=== PATIENT | female | born 1975 | race Caucasian/White ===

== ENCOUNTER 2018-05-01 00:16 | Observation (INO) | payer MEDICAID ==
[2018-05-01] VITALS (338 sets, daily range): BP systolic 93–109; BP diastolic 54–71; PULSE 51–102; TEMP 97.2–100.2; O2SAT 90–100
[~2018-05-01] VITALS: Ht 157.5 cm; Wt 102.2 kg
[2018-05-01] MEDS ORDERED: BYSTOLIC20 MG PO ×2 (00:42→00:44)
[2018-05-01] MEDS ORDERED: NORVASC 10MG10 MG PO (00:45)
[2018-05-01] MEDS ORDERED: ALDACTONE 100M100 MG PO (00:45)
[2018-05-01] MEDS ORDERED: LAMICTAL200 MG PO (00:47)
[2018-05-01] MEDS ORDERED: ZYRTEC 10MG10 MG PO (00:48)
[2018-05-01] MEDS ORDERED: PROTONIX 40MG T40 MG PO (00:48)
[2018-05-01] MEDS ORDERED: PROPECIA1 MG PO (00:49)
[2018-05-01] MEDS ORDERED: VITAMIN D 50,1.25 MG PO (02:19)
[2018-05-01] MEDS ORDERED: FERRO SEQUELS PO (03:59)
[2018-05-01 05:37] LABS: BASO % 0.3 % (0.0-2.0); EOS # 0.1 (0.0-0.7); EOS % 0.5 % (0-4.0); GRAN # 10.9 (1.4-6.5); GRAN % 73.1 % (42.2-75.2); HEMATOCRIT 37.4 % (37.0-47.0); HEMOGLOBIN 12.8 g/dl (12.5-16.0); LYMPH % 19.9 % (20.0-51.0); MEAN CELL VOLUME 95 fl (80.0-100.0); MEAN CORPUSCULAR HEMOGLOBIN 33 pg (27.0-31.0); MEAN CORPUSCULAR HGB CONC 34 g/dl (33.0-37.0); MEAN PLATELET VOLUME 10.4 fl (7.4-10.4); MONO # 0.9 (0.1-0.6); MONO % 5.9 % (1.7-9.3); PLATELET COUNT 224 K/mm3 (130-400); RED BLOOD COUNT 3.93 M/mm3 (4.10-5.30); REDCELL DISTRIBUTION WIDTH-CV 13.2 % (11.5-14.5)
[2018-05-01 05:49] LABS: ALBUMIN 3.5 gm/dL (3.5-5.0); CALCIUM 8.7 mg/dL (8.4-10.2); CREATININE, serum 0.91 mg/dL (0.52-1.25); PHOSPHOROUS 3.8 mg/dL (2.5-4.5); POTASSIUM 3.8 mmol/L (3.4-5.0)
[2018-05-02] VITALS (7 sets, daily range): BP systolic 113–135; BP diastolic 57–83; PULSE 57–79; TEMP 97.8–99.1
[2018-05-02 09:34] LABS: BASO % 0.4 % (0.0-2.0); EOS # 0.3 (0.0-0.7); EOS % 4.1 % (0-4.0); GRAN # 4.3 (1.4-6.5); GRAN % 60.5 % (42.2-75.2); HEMOGLOBIN 12.3 g/dl (12.5-16.0); LYMPH # 1.9 (1.2-3.4); LYMPH % 26.8 % (20.0-51.0); MEAN CELL VOLUME 94 fl (80.0-100.0); MEAN CORPUSCULAR HEMOGLOBIN 33 pg (27.0-31.0); MEAN CORPUSCULAR HGB CONC 35 g/dl (33.0-37.0); MEAN PLATELET VOLUME 10.7 fl (7.4-10.4); MONO # 0.6 (0.1-0.6); MONO % 7.8 % (1.7-9.3); PLATELET COUNT 219 K/mm3 (130-400); RED BLOOD COUNT 3.79 M/mm3 (4.10-5.30); REDCELL DISTRIBUTION WIDTH-CV 13.1 % (11.5-14.5)
[2018-05-02 09:35] LABS: HEMATOCRIT 35.7 % (37.0-47.0)
[2018-05-02 09:46] LABS: ALBUMIN 3.2 gm/dL (3.5-5.0); CALCIUM 8.5 mg/dL (8.4-10.2); CREATININE, serum 0.75 mg/dL (0.52-1.25); PHOSPHOROUS 3.3 mg/dL (2.5-4.5); POTASSIUM 3.6 mmol/L (3.4-5.0)
[2018-05-03 03:44] VITALS: BP 104/68; PULSE 56; TEMP 99.5
[2018-05-03 06:36] LABS: BASO # 0.1 (0.0-0.2); BASO % 0.8 % (0.0-2.0); EOS # 0.5 (0.0-0.7); EOS % 5.8 % (0-4.0); GRAN # 3.8 (1.4-6.5); GRAN % 48.7 % (42.2-75.2); HEMOGLOBIN 12.4 g/dl (12.5-16.0); LYMPH # 2.5 (1.2-3.4); LYMPH % 32.5 % (20.0-51.0); MEAN CELL VOLUME 96 fl (80.0-100.0); MEAN CORPUSCULAR HEMOGLOBIN 33 pg (27.0-31.0); MEAN CORPUSCULAR HGB CONC 34 g/dl (33.0-37.0); MEAN PLATELET VOLUME 10.8 fl (7.4-10.4); MONO # 0.9 (0.1-0.6); MONO % 11.8 % (1.7-9.3); PLATELET COUNT 225 K/mm3 (130-400); RED BLOOD COUNT 3.78 M/mm3 (4.10-5.30); REDCELL DISTRIBUTION WIDTH-CV 13.2 % (11.5-14.5)
[2018-05-03 06:40] LABS: HEMATOCRIT 36.4 % (37.0-47.0)
[2018-05-03 06:52] LABS: ALBUMIN 3.1 gm/dL (3.5-5.0); CALCIUM 8.4 mg/dL (8.4-10.2); CREATININE, serum 0.88 mg/dL (0.52-1.25); PHOSPHOROUS 4.4 mg/dL (2.5-4.5); POTASSIUM 3.6 mmol/L (3.4-5.0)
[2018-05-03 07:20] VITALS: BP 124/78; PULSE 55; TEMP 98
[2018-05-03] MEDS ORDERED: CIPRO 500MG TA500 MG PO (09:54)
[2018-05-03] MEDS ORDERED: FLAGYL500 MG PO (09:54)
[2018-05-03 11:09] VITALS: BP 115/65; PULSE 64; TEMP 97.9
== END 2018-05-03 16:15 | disposition home or self-care (01) ==
LOC: ICU 00:16 → MEDICAL 00:16
PROVIDERS: Surgery
DX: R10.31 Right lower quadrant pain (principal); I10 Essential (primary) hypertension; E78.5 Hyperlipidemia, unspecified; K21.9 Gastro-esophageal reflux disease without esophagitis; Z79.899 Other long term (current) drug therapy
CPT/HCPCS: G0378; G0379; J0744; J2405; J7120

== ENCOUNTER → 2018-06-10 | Outpatient (CLI) | payer OTHER, MEDICAID ==
[~2018-06-10] MED LIST: ALDACTONE 100M100 MG PO; BYSTOLIC20 MG PO; CIPRO 500MG TA500 MG PO; FERRO SEQUELS PO; FLAGYL500 MG PO; LAMICTAL200 MG PO; NORVASC 10MG10 MG PO; PROPECIA1 MG PO; PROTONIX 40MG T40 MG PO; VITAMIN D 50,1.25 MG PO; ZYRTEC 10MG10 MG PO
== END ==
LOC: COL.RAD 08:15
DX: M50.33 Other cervical disc degeneration, cervicothoracic region (principal); M50.221 Other cervical disc displacement at C4-C5 level; M51.24 Other intervertebral disc displacement, thoracic region; G56.92 Unspecified mononeuropathy of left upper limb; Z98.890 Other specified postprocedural states; V89.2XXS Person injured in unspecified motor-vehicle accident, traffic, sequela

== ENCOUNTER → 2018-07-17 | Outpatient (CLI) | payer OTHER, MEDICAID | LOC: MHCPAIN 08:36 | DX: G89.29 Other chronic pain (principal); M54.12 Radiculopathy, cervical region; M47.812 Spondylosis without myelopathy or radiculopathy, cervical region; R51 Headache | CPT/HCPCS: G0463 ==

== ENCOUNTER → 2020-04-19 | Outpatient (CLI) | payer MEDICAID ==
[~2020-04-19] VITALS: Ht 157.5 cm; Wt 99.3 kg
[2020-04-19] VITALS (9 sets, daily range): BP systolic 108–120; BP diastolic 70–86; PULSE 57–76
[~2020-04-19] MED LIST changes: +AVODART 0.5MG0.5 MG PO
--- NOTE | 2020-04-19 12:45 | NUR ---
PT REQUESTS JUICE AND CRACKERS THESE WERE GIVEN.
== END ==
LOC: COL.RAD 04-12 13:00
DX: S12.9XXD Fracture of neck, unspecified, subsequent encounter (principal); M47.22 Other spondylosis with radiculopathy, cervical region; M48.02 Spinal stenosis, cervical region; M50.11 Cervical disc disorder with radiculopathy, high cervical region; Z98.1 Arthrodesis status
CPT/HCPCS: Q9967

== ENCOUNTER 2020-04-22 10:14 | Emergency (ER) | payer MEDICAID ==
[~2020-04-22] VITALS: Ht 152.4 cm; Wt 93.6 kg
[2020-04-22 10:20] VITALS: TEMP 97.9
[2020-04-22 13:20] VITALS: BP 105/74; PULSE 64
== END 2020-04-22 13:29 | disposition home or self-care (01) ==
LOC: COL.ER 10:14
DX: G97.1 Other reaction to spinal and lumbar puncture (principal)
CPT/HCPCS: J7030

== ENCOUNTER 2021-04-17 07:22 | Emergency (ER) | payer MEDICAID ==
[~2021-04-17] VITALS: Ht 152.4 cm; Wt 93.6 kg
[2021-04-17 07:44] VITALS: BP 118/87; TEMP 99.8
[2021-04-17] MEDS ORDERED: MINOXIDIL 2.5 PO (07:56)
[2021-04-17] MEDS ORDERED: PEN-VEE K500 MG PO (08:39)
[2021-04-17 08:55] VITALS: PULSE 94
== END 2021-04-17 08:59 | disposition home or self-care (01) ==
LOC: COL.ER 07:22
DX: J02.9 Acute pharyngitis, unspecified (principal); F17.200 Nicotine dependence, unspecified, uncomplicated; Z86.16 Personal history of COVID-19
CPT/HCPCS: J0696; J1100

== ENCOUNTER → 2021-06-21 | Outpatient (CLI) | payer MEDICAID ==
[~2021-06-21] MED LIST changes: +BYSTOLIC10 MG PO; +MINOXIDIL 2.5 PO; +PEN-VEE K500 MG PO; +TYLENOL 325MG325 MG PO; +ULTRAM 50MG TAB50 MG PO
== END ==
LOC: COL.RAD 06-07 08:00
DX: K44.9 Diaphragmatic hernia without obstruction or gangrene (principal)

== ENCOUNTER 2021-07-13 05:44 | Day surgery (SDC) | payer MEDICAID ==
[2021-07-13] VITALS (11 sets, daily range): BP systolic 98–134; BP diastolic 60–80; PULSE 58–82; TEMP 97.3–98.8
[~2021-07-13] VITALS: Ht 152.4 cm; Wt 95.7 kg
[~2021-07-13 05:44] MED LIST changes: -BYSTOLIC10 MG PO; -TYLENOL 325MG325 MG PO; -ULTRAM 50MG TAB50 MG PO
[2021-07-13] MEDS ORDERED: BYSTOLIC10 MG PO ×2 (06:42→06:43)
--- NOTE | 2021-07-13 07:19 | NUR ---
Patient taken to surgery per cart by Cameron SEWELL and patient belongings taken to PACU.
--- NOTE | 2021-07-13 10:00 | NUR ---
Pt arrived on unit from PACU via bed. Report received. Oriented to room, bed and call light within reach. Plan of care reviewed with pt.
[2021-07-14 05:20] VITALS: BP 109/61; PULSE 53; TEMP 97.6
[2021-07-14 08:00] VITALS: BP 106/69; PULSE 54; TEMP 98
[2021-07-14 11:45] VITALS: BP 120/69; PULSE 55; TEMP 97.5
[2021-07-14] MEDS ORDERED: ULTRAM 50MG TAB50 MG PO (12:06)
[2021-07-14] MEDS ORDERED: TYLENOL 325MG325 MG PO (12:06)
[2021-07-14 16:30] VITALS: BP 120/75; PULSE 56; TEMP 98
--- NOTE | 2021-07-14 16:40 | NUR ---
Discharge instructions reviewed with patient who verbalizes understanding.
--- NOTE | 2021-07-14 19:00 | NUR ---
1900 DISMISSED TO HOME PER W/C.
== END 2021-07-14 19:00 | disposition home or self-care (01) ==
LOC: SDCO 05:44 → OB 10:00 → SDCO 10:00 → OB 15:00 → SDCO 07-14 19:00
DX: K21.00 Gastro-esophageal reflux disease with esophagitis, without bleeding (principal); K44.9 Diaphragmatic hernia without obstruction or gangrene; I10 Essential (primary) hypertension; E78.5 Hyperlipidemia, unspecified; F32.9 Major depressive disorder, single episode, unspecified; Z90.710 Acquired absence of both cervix and uterus; Z79.82 Long term (current) use of aspirin; Z79.899 Other long term (current) drug therapy; Z80.3 Family history of malignant neoplasm of breast; Z80.0 Family history of malignant neoplasm of digestive organs
CPT/HCPCS: OP; J1885; J3010; J7120

== ENCOUNTER 2021-08-31 23:52 | Emergency (ER) | payer MEDICAID ==
[~2021-08-31] VITALS: Ht 152.4 cm; Wt 93.2 kg
[~2021-08-31 23:52] MED LIST changes: +BYSTOLIC10 MG PO; +TYLENOL 325MG325 MG PO; +ULTRAM 50MG TAB50 MG PO
[2021-09-01 00:38] VITALS: TEMP 98.8
[2021-09-01 01:39] LABS: BASO # 0.1 K/mm3 (0.0-0.2); BASO % 0.8 % (0.0-2.0); EOS # 0.1 K/mm3 (0.0-0.7); EOS % 0.6 % (0-4.0); GRAN # 6.3 K/mm3 (1.4-6.5); GRAN % 68.5 % (42.2-75.2); HEMATOCRIT 40.3 % (37.0-47.0); HEMOGLOBIN 13.8 g/dl (12.5-16.0); LYMPH % 21.8 % (20.0-51.0); MEAN CELL VOLUME 91 fl (80.0-100.0); MEAN CORPUSCULAR HEMOGLOBIN 31 pg (27.0-31.0); MEAN CORPUSCULAR HGB CONC 34 g/dl (33.0-37.0); MONO # 0.7 K/mm3 (0.1-0.6); MONO % 7.8 % (1.7-9.3); PLATELET COUNT 292 K/mm3 (130-400); RED BLOOD COUNT 4.41 M/mm3 (4.10-5.30); REDCELL DISTRIBUTION WIDTH-CV 14.6 % (11.5-14.5)
[2021-09-01 02:17] LABS: ALANINE AMINOTRANSFERASE 34 U/L (0-55); ALBUMIN 3.8 gm/dL (3.5-5.0); ALKALINE PHOSPHATASE 70 U/L (40-150); ANION GAP 8 mmol/L (7-16); AST,SGOT 32 U/L (5-34); BLOOD UREA NITROGEN 11 mg/dL (7-19); CALCIUM 9.4 mg/dL (8.4-10.2); CARBON DIOXIDE 26 mmol/L (22-29); CHLORIDE 106 mmol/L (98-107); CREATININE, serum 0.81 mg/dL (0.57-1.11); GLUCOSE 106 mg/dL (70-99); POTASSIUM 3.3 mmol/L (3.5-4.5); SODIUM 140 mmol/L (136-145); TOTAL PROTEIN 7.2 gm/dL (6.2-8.1)
[2021-09-01 02:27] LABS: TROPONIN-I < 0.010 ng/mL (0.00-0.033)
[2021-09-01 03:04] VITALS: BP 121/75; PULSE 80
== END 2021-09-01 03:10 | disposition home or self-care (01) ==
LOC: COL.ER 23:52
PROVIDERS: Student in an Organized Health Care Education/Training Program
DX: E87.6 Hypokalemia (principal); I10 Essential (primary) hypertension; K21.9 Gastro-esophageal reflux disease without esophagitis; Z79.899 Other long term (current) drug therapy
CPT/HCPCS: J2405; J7030

== ENCOUNTER 2022-02-12 03:55 | Emergency (ER) | payer MEDICAID ==
[~2022-02-12] VITALS: Ht 152.4 cm; Wt 89.1 kg
[2022-02-12 04:02] VITALS: TEMP 99.2
[2022-02-12 05:05] LABS: COLLECTION METHOD CLEAN CATCH
[2022-02-12 05:11] LABS: BASO # 0.1 K/mm3 (0.0-0.2); BASO % 0.5 % (0.0-2.0); EOS % 0.1 % (0.0-4.0); GRAN # 11.8 K/mm3 (1.4-6.5); GRAN % 83.2 % (42.2-75.2); HEMOGLOBIN 15.1 g/dl (12.5-16.0); LYMPH # 1.5 K/mm3 (1.2-3.4); LYMPH % 10.8 % (20.0-51.0); MEAN CELL VOLUME 92 fl (80.0-100.0); MEAN CORPUSCULAR HEMOGLOBIN 32 pg (27-31); MEAN CORPUSCULAR HGB CONC 35 g/dl (33.0-37.0); MEAN PLATELET VOLUME 10.4 fl (7.4-10.4); MONO # 0.7 K/mm3 (0.1-0.6); MONO % 5.1 % (1.7-9.3); PLATELET COUNT 284 K/mm3 (130-400); RED BLOOD COUNT 4.68 M/mm3 (4.10-5.30); REDCELL DISTRIBUTION WIDTH-CV 12.9 % (11.5-14.5)
[2022-02-12 05:14] LABS: PH 5 (5-8); SQUAMOUS EPITHELIAL 0-2 /hpf (0-10); URINE APPEARANCE Clear (CLEAR/HAZY); URINE BACTERIA None Seen /hpf (NONE SEEN); URINE BILIRUBIN Negative (NEGATIVE); URINE BLOOD 1+ (NEGATIVE); URINE COLOR Straw (YELLOW); URINE GLUCOSE Negative (NEGATIVE); URINE KETONE Negative (NEGATIVE); URINE LEUKOCYTE ESTERASE Negative (NEGATIVE); URINE NITRATE Negative (NEGATIVE); URINE PROTEIN(semi-quant) Negative (NEGATIVE); URINE RBC 0-2 /hpf (0-2); URINE UROBILINOGEN Negative (NEGATIVE)
[2022-02-12 05:28] LABS: ALBUMIN 4.4 gm/dL (3.5-5.0); BILIRUBIN,TOTAL 1.3 mg/dL (0.2-1.2); CALCIUM 10.1 mg/dL (8.4-10.2); CREATININE, serum 1.05 mg/dL (0.57-1.11); TOTAL PROTEIN 8.5 gm/dL (6.2-8.1)
[2022-02-12] MEDS ORDERED: ANTIVERT 25MG25 MG PO (06:18)
[2022-02-12 07:31] VITALS: BP 125/77; PULSE 84
== END 2022-02-12 07:31 | disposition home or self-care (01) ==
LOC: COL.ER 03:55
PROVIDERS: Personal Emergency Response Attendant
DX: R42 Dizziness and giddiness (principal); D72.829 Elevated white blood cell count, unspecified; Z88.6 Allergy status to analgesic agent
CPT/HCPCS: J2405; J3010; J7030

== ENCOUNTER 2023-07-27 09:54 | Emergency (ER) | payer MEDICAID ==
[~2023-07-27] VITALS: Ht 152.4 cm; Wt 83.2 kg
[~2023-07-27 09:54] MED LIST changes: +AMOXICILLIN 8751 TAB PO; +ANTIVERT 25MG25 MG PO; +DIFLUCAN150 MG PO; +LEVAQUIN 750MG750 M1 PO; +NATURAL MAGNES200 MG PO; +ZOFRAN ODT4 MG PO
[2023-07-27 10:06] VITALS: TEMP 98.1
[2023-07-27 12:50] LABS: BASO # 0.1 K/mm3 (0.0-0.2); BASO % 0.5 % (0.0-2.0); EOS # 0.1 K/mm3 (0.0-0.7); EOS % 1.2 % (0.0-4.0); GRAN # 7.1 K/mm3 (1.4-6.5); HEMATOCRIT 41.4 % (37.0-47.0); HEMOGLOBIN 13.9 g/dl (12.5-16.0); LYMPH # 2.8 K/mm3 (1.2-3.4); LYMPH % 25.2 % (20.0-51.0); MEAN CELL VOLUME 93 fl (80.0-100.0); MEAN CORPUSCULAR HEMOGLOBIN 31 pg (27-31); MEAN CORPUSCULAR HGB CONC 34 g/dl (33.0-37.0); MEAN PLATELET VOLUME 11.1 fl (7.4-10.4); MONO % 8.7 % (1.7-9.3); PLATELET COUNT 211 K/mm3 (130-400); RED BLOOD COUNT 4.44 M/mm3 (4.10-5.30); REDCELL DISTRIBUTION WIDTH-CV 13.6 % (11.5-14.5)
[2023-07-27 12:51] LABS: COLLECTION METHOD CLEAN CATCH
[2023-07-27 12:58] LABS: ALBUMIN 3.9 gm/dL (3.5-5.0); BILIRUBIN,TOTAL 1.9 mg/dL (0.2-1.2); CALCIUM 9.6 mg/dL (8.4-10.2); CREATININE, serum 0.84 mg/dL (0.57-1.11); POTASSIUM 3.8 mmol/L (3.5-4.5); TOTAL PROTEIN 7.4 gm/dL (6.2-8.1)
[2023-07-27 13:09] LABS: MUCOUS Present (NOT PRESENT); SQUAMOUS EPITHELIAL 0-2 /hpf (0-10); URINE BACTERIA None Seen /hpf (NONE SEEN); URINE RBC 0-2 /hpf (0-2)
[2023-07-27 13:16] LABS: PH 5.5 (5.0-8.5); URINE APPEARANCE Clear (CLEAR/HAZY); URINE BLOOD TRACE-INTACT (NEGATIVE); URINE COLOR Yellow (YELLOW); URINE GLUCOSE Negative (NEGATIVE); URINE KETONE Negative (NEGATIVE); URINE NITRATE Negative (NEGATIVE); URINE PROTEIN(semi-quant) Negative (NEGATIVE); URINE UROBILINOGEN 0.2 E.U/dL (0.2-1.0)
[2023-07-27] MEDS ORDERED: ZOFRAN ODT4 MG PO (13:56)
[2023-07-27 14:13] VITALS: BP 115/88; PULSE 52
== END 2023-07-27 14:13 | disposition home or self-care (01) ==
LOC: COL.ER 09:54
PROVIDERS: Physician Assistant
DX: R10.32 Left lower quadrant pain (principal); R00.1 Bradycardia, unspecified; R11.0 Nausea; I10 Essential (primary) hypertension; Z79.899 Other long term (current) drug therapy; Z87.19 Personal history of other diseases of the digestive system; Z98.890 Other specified postprocedural states
CPT/HCPCS: J2405; J7030